=== PATIENT | male | born 1975 | race Two or more races ===

== ENCOUNTER 2016-08-19 18:57 | Emergency (ER) | payer MEDICAID ==
[~2016-08-19] VITALS: Ht 170.2 cm; Wt 102.1 kg
[2016-08-19 19:28] VITALS: BP 117/75
--- NOTE | 2016-08-19 20:05 | Emergency Room Report ---
History of Present Illness General Chief Complaint: Upper Respiratory Illness Source: Patient Present Illness HPI 40 YO Male Pt. presents to the ED c/o cough congestion and increased phlegm x 1 week. Denies nausea, vomiting, fevers, chills, neck pain or stiffness. he denies history of asthma or past medical hx. Patient reports mucus production in the throat and clear sputum intermittently. Pt has not had flu vaccination. reports as ill contact. 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 Pt also reports straining with BM x 1 month, has a BM daily.Denies abdominal pain, diarrhea, blood in the stool or dark tarry stools. Denies CP, Palpitations, LOC, AMS, dizziness, Changes in Vision, Sensation, paresthesias, or a sudden severe headache. Allergies: Coded Allergies: No Known Allergies (Unverified , 08/19/16) Patient History Past Medical History: see triage record Past Surgical History: none Pertinent Family History: none Reviewed Nursing Documentation: PMH: Agreed, PSxH: Agreed Nursing Documentation-PMH Past Medical History: No Stated History Review of Systems All Other Systems: negative except mentioned in HPI Physical Exam Vital Signs Date Time Temp Pulse Resp B/P Pulse Ox O2 Delivery O2 Flow Rate FiO2 08/19/16 19:21 98.6 100 14 117/75 97 Room Air Sp02 EP Interpretation: reviewed, normal General Appearance: no apparent distress, alert, GCS 15, non-toxic Head: normocephalic, atraumatic Eyes: bilateral eye PERRL, bilateral eye normal inspection ENT: hearing grossly normal, normal pharynx, no angioedema, normal voice, TMs + canals normal, uvula midline, moist mucus membranes, nasal congestion Neck: full range of motion, no meningismus, no bony tend, supple/symm/no masses Respiratory: chest non-tender, lungs clear, normal breath sounds, no rhonchi, no respiratory distress, no retraction, no accessory muscle use, no wheezing, speaking full sentences Cardiovascular #1: regular rate, rhythm, no edema Gastrointestinal: normal bowel sounds, non tender, soft, no guarding, no rebound Rectal: deferred Genitourinary: normal inspection, no CVA tenderness Musculoskeletal: back normal, gait/station normal, normal range of motion, non- tender, no calf tenderness Neurologic: alert, oriented x3, responsive, motor strength/tone normal, sensory intact, speech normal Psychiatric: judgement/insight normal, memory normal, mood/affect normal, no suicidal/homicidal ideation Reflexes: 4+ bicep (R), 4+ bicep (L), 4+ tricep (R), 4+ tricep (L), 4+ knee (R) , 4+ knee (L) Skin: normal color, no rash, warm/dry, well hydrated Lymphatic: no adenopathy Medical Decision Making PA Attestation Dr. grayson is my supervising Physician whom patient management has been discussed with. Diagnostic Impression: Primary Impression: Viral upper respiratory tract infection with cough Additional Impression: Constipation Qualified Codes: K59.09 - Other constipation ER Course Pt. presents to the ED c/o cough congestion body aches, and increased phlegm x 1 week. Pt also reports straining with BM x 1 month, has a BM daily. Ddx considered but are not limited to URI, pneumonia, PE, strep pharyngitis, meningitis. Vital signs: Pt. is afebrile, the remaining VS are WNL H&PE are most consistent with URI- no meningeal signs, oropharynx is not involved, no evidence of bacterial infection at this time. Pt. also has mild constipation. no evidence of acute intra-abdominal process at this time. ORDERS: none required at this time, the diagnosis is clinical ED INTERVENTIONS: None required at this time. --PT. EDUCATION: Discussed antibiotic resistance with inappropriate prescribing of antibiotics for viral illnesses. Discussed signs and symptoms to indicate viral illness versus bacterial illness. DISCHARGE: At this time pt. is stable for d/c to home. Will provide printed patient care instructions, and any necessary prescriptions. Care plan and follow up instructions have been discussed with the patient prior to discharge. Last Vital Signs Date Time Temp Pulse Resp B/P Pulse Ox O2 Delivery O2 Flow Rate FiO2 08/19/16 19:28 100 14 Room Air 08/19/16 19:28 98.6 117/75 97 Disposition: HOME, SELF-CARE Condition: Stable Scripts Docusate Sodium* (COLACE*) 100 Mg Capsule 100 MG ORAL TWICE A DAY Y for Constipation, #60 CAP Prov: Maria Luisa He.AYumiko 08/19/16 Guaifenesin (Guaifenesin) 1,200 Mg Tab.er.12h 1200 MG PO BID for 5 Days, TAB Prov: Maria Luisa He 08/19/16 Codeine/Promethazine Hcl* (PROMETHAZINE-CODEINE SYRUP*) 118 Ml Syrup 5 ML ORAL Q6H Y for For Cough, #118 ML 0 Refills Prov: Maria Luisa He 08/19/16 Referrals: [facility] (PCP) Patient Instructions: Upper Respiratory Infection, Adult Additional Instructions: Take medications as directed. Follow up with PCP in 3-5 days Return sooner to ED if new symptoms occur, or current symptoms become worse. Do not drink alcohol, drive, or operate heavy machinery while taking Cough Syrup as this may cause drowsiness. Maria Luisa He Aug 19, 2016 20:05
[2016-08-19] MEDS ORDERED: COLACE100 MG ORAL (20:07)
[2016-08-19] MEDS ORDERED: GUAIFENESIN1200 MG PO (20:07)
[2016-08-19] MEDS ORDERED: PROMETHAZINE-C118 M1 ORAL (20:07)
[2016-08-19 20:21] VITALS: BP 110/80
== END 2016-08-19 20:22 | disposition home or self-care (01) ==
LOC: EMR 19:30
DX: J06.9 Acute upper respiratory infection, unspecified (principal); K59.09 Other constipation
CPT/HCPCS: 99282

== ENCOUNTER 2018-11-19 19:58 | Emergency (ER) | payer MEDICAID ==
[~2018-11-19] VITALS: Ht 170.2 cm; Wt 99.8 kg
[~2018-11-19 19:58] MED LIST: COLACE100 MG ORAL; GUAIFENESIN1200 MG PO; PROMETHAZINE-C118 M1 ORAL
[2018-11-19] MEDS ORDERED: NKM (20:09)
[2018-11-19 20:19] VITALS: BP 150/87
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
--- NOTE | 2018-11-19 21:10 | NUR ---
ED Nurse Note: Patient currently going down for CT.
[2018-11-19] MEDS ORDERED: IBUPROFEN600 MG ORAL (22:00)
[2018-11-19 22:05] VITALS: BP 150/87
--- NOTE | 2018-11-19 22:05 | NUR ---
ED Nurse Note: Patient cleared for discharge by ERMÁngel. Patient is ambulatory with steady gait, ID band removed. Patient verbalized understanding of discharge instructions and was escorted to the discharge desk. Patient departed with all belongings.
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
== END 2018-11-19 22:05 | disposition home or self-care (01) ==
LOC: EMR 21:00
DX: S16.1XXA Strain of muscle, fascia and tendon at neck level, initial encounter (principal); M54.10 Radiculopathy, site unspecified; V43.52XA Car driver injured in collision with other type car in traffic accident, initial encounter; Y92.410 Unspecified street and highway as the place of occurrence of the external cause; R51 Headache; M79.651 Pain in right thigh; M79.601 Pain in right arm
CPT/HCPCS: 70450; 72125; 99284